=== PATIENT | male | born 1980 | race Caucasian/White ===

== ENCOUNTER 2017-11-06 16:44 | Emergency (ER) | payer BC, OTHER ==
[~2017-11-06] VITALS: Ht 177.8 cm; Wt 86.2 kg
[2017-11-06 17:21] LABS: HEMATOCRIT 45.4 % (42.0-52.0); HEMOGLOBIN 15.3 gm/dL (14.0-18.0); MCH 29.5 pg (26.0-34.0); MCHC 33.8 g/dL (28.0-37.0); MCV 87.3 fL (80.0-100.0); RBC 5.2 mil/uL (4.50-6.00); RDW 13.3 % (10.5-14.5); WBC 6.8 thou/uL (4.0-11.0)
[2017-11-06 17:34] LABS: CALCIUM 9.1 mg/dL (8.5-10.1); CREATININE 0.9 mg/dL (0.7-1.3); POTASSIUM 3.7 mmol/L (3.5-5.1)
[2017-11-06 17:39] LABS: ALBUMIN 4.1 g/dL (3.4-5.0); TOTAL BILIRUBIN 0.5 mg/dL (<0.1-1.0); TOTAL PROTEIN 7.5 g/dL (6.4-8.2)
[2017-11-06] MEDS ORDERED: CIPROFLOXACIN500 M1 PO (18:33)
[2017-11-06 18:54] VITALS: BP 123/86
== END 2017-11-06 18:54 | disposition home or self-care (01) ==
LOC: ER 16:44
PROVIDERS: Emergency Medicine
DX: K52.9 Noninfective gastroenteritis and colitis, unspecified (principal); F17.210 Nicotine dependence, cigarettes, uncomplicated

== ENCOUNTER 2017-12-14 05:25 | Day surgery (SDC) | payer BC, OTHER ==
[~2017-12-14] VITALS: Ht 177.8 cm; Wt 89.8 kg
[~2017-12-14 05:25] MED LIST: CIPROFLOXACIN500 M1 PO
[2017-12-14 10:20] VITALS: BP 115/60
[2017-12-14] MEDS ORDERED: ONDANSETRON HCL4 M2 PO (11:52)
[2017-12-14] MEDS ORDERED: HYDROCODONE-AP1 EAC6 PO (11:52)
[2017-12-14 12:11] VITALS: BP 115/60
== END 2017-12-14 13:30 | disposition home or self-care (01) ==
LOC: TBA 05:25 → OR 05:25
DX: K40.90 Unilateral inguinal hernia, without obstruction or gangrene, not specified as recurrent (principal); F17.210 Nicotine dependence, cigarettes, uncomplicated; Z98.890 Other specified postprocedural states; Z79.891 Long term (current) use of opiate analgesic
CPT/HCPCS: 49000; 50010; 50101; 50249; 50386; 50555; 50558; 52265; 53310; 54022; 54118; 54169; 56525; 56526; 56531; 56641; 57092; 62110; 62900; 70005